=== PATIENT | female | born 1945 | race Caucasian/White ===

== ENCOUNTER 2019-08-26 06:51 | Emergency (ER) | payer MEDICARE, BC | END 2019-08-26 07:35 | disposition home or self-care (01) | LOC: MADERS 06:51 | DX: T63.301A Toxic effect of unspecified spider venom, accidental (unintentional), initial encounter (principal); K21.9 Gastro-esophageal reflux disease without esophagitis; E78.5 Hyperlipidemia, unspecified; Z79.899 Other long term (current) drug therapy | CPT/HCPCS: 99282 ==

== ENCOUNTER 2020-05-02 23:01 | Emergency (ER) | payer MEDICARE, BC | END 2020-05-02 23:33 | disposition home or self-care (01) | LOC: MADERS 23:01 | DX: M79.89 Other specified soft tissue disorders (principal); S70.11XD Contusion of right thigh, subsequent encounter; K21.9 Gastro-esophageal reflux disease without esophagitis; E78.5 Hyperlipidemia, unspecified; E78.00 Pure hypercholesterolemia, unspecified; Z87.891 Personal history of nicotine dependence; Z79.899 Other long term (current) drug therapy; X58.XXXD Exposure to other specified factors, subsequent encounter | CPT/HCPCS: 99283 ==

== ENCOUNTER 2020-07-13 06:50 | Emergency (ER) | payer MEDICARE, BC ==
[2020-07-13] MEDS ORDERED: predniSONE 20 MG TAB ONE (07:23)
== END 2020-07-13 07:30 | disposition home or self-care (01) ==
LOC: MADERS 06:50
DX: S50.861A Insect bite (nonvenomous) of right forearm, initial encounter (principal); S80.861A Insect bite (nonvenomous), right lower leg, initial encounter; L50.9 Urticaria, unspecified; K21.9 Gastro-esophageal reflux disease without esophagitis; E78.5 Hyperlipidemia, unspecified; Z87.891 Personal history of nicotine dependence; Z79.899 Other long term (current) drug therapy; W57.XXXA Bitten or stung by nonvenomous insect and other nonvenomous arthropods, initial encounter
CPT/HCPCS: 99282; J7512

== ENCOUNTER 2021-09-04 09:45 | Outpatient (CLI) | payer MEDICARE, BC ==
[~2021-09-04 09:45] MED LIST: Iopamidol 370 76% 100 ML VIAL ONE
== END 2021-09-04 09:46 | disposition home or self-care (01) ==
LOC: MADCT 09:45
PROVIDERS: ATTEND Internal Medicine
DX: I70.0 Atherosclerosis of aorta (principal); Z82.49 Family history of ischemic heart disease and other diseases of the circulatory system; R93.421 Abnormal radiologic findings on diagnostic imaging of right kidney; K57.30 Diverticulosis of large intestine without perforation or abscess without bleeding; M47.814 Spondylosis without myelopathy or radiculopathy, thoracic region; M47.816 Spondylosis without myelopathy or radiculopathy, lumbar region; M47.817 Spondylosis without myelopathy or radiculopathy, lumbosacral region; M51.36 Other intervertebral disc degeneration, lumbar region; M51.37 Other intervertebral disc degeneration, lumbosacral region; Z90.49 Acquired absence of other specified parts of digestive tract; Z98.890 Other specified postprocedural states
CPT/HCPCS: 36415; 71260; 74177; 82565; Q9967

== ENCOUNTER 2022-04-18 12:05 | Emergency (ER) | payer MEDICARE, BC ==
[2022-04-18] MEDS ORDERED: Ibuprofen 800 MG TAB ONE (12:53)
== END 2022-04-18 12:57 | disposition home or self-care (01) ==
LOC: MADERS 12:05
DX: S01.01XA Laceration without foreign body of scalp, initial encounter (principal); K21.9 Gastro-esophageal reflux disease without esophagitis; E78.00 Pure hypercholesterolemia, unspecified; W45.0XXA Nail entering through skin, initial encounter; Z87.891 Personal history of nicotine dependence; Z79.899 Other long term (current) drug therapy
CPT/HCPCS: 12001

== ENCOUNTER 2023-08-04 18:54 | Emergency (ER) | payer MEDICARE, BC ==
[2023-08-04] MEDS ORDERED: Ibuprofen 600 MG TAB ONE (19:19)
== END 2023-08-04 19:49 | disposition home or self-care (01) ==
LOC: MADERS 18:54
DX: S60.562A Insect bite (nonvenomous) of left hand, initial encounter (principal); M79.89 Other specified soft tissue disorders; Z87.891 Personal history of nicotine dependence; W57.XXXA Bitten or stung by nonvenomous insect and other nonvenomous arthropods, initial encounter

== ENCOUNTER 2024-10-25 16:00 | Emergency (ER) | payer MEDICARE, BC | END 2024-10-25 18:37 | disposition home or self-care (01) | LOC: MADERS 16:00 | DX: S63.501A Unspecified sprain of right wrist, initial encounter (principal); E78.00 Pure hypercholesterolemia, unspecified; X50.0XXA Overexertion from strenuous movement or load, initial encounter; Z87.891 Personal history of nicotine dependence | CPT/HCPCS: 99283 ==

== ENCOUNTER 2025-01-27 14:34 | Outpatient (CLI) | payer MEDICARE, BC | END 2025-01-27 14:35 | disposition home or self-care (01) | LOC: MADRAD 14:34 | PROVIDERS: ATTEND Nurse Practitioner Family | DX: S67.193A Crushing injury of left middle finger, initial encounter (principal); M19.042 Primary osteoarthritis, left hand ==